=== PATIENT | female | born 1950 | race African-American/Black ===

== ENCOUNTER 2016-05-12 07:54 | Inpatient (IN) | payer MEDICARE ==
[~2016-05-12] VITALS: Ht 165.1 cm; Wt 58.1 kg
--- NOTE | ~2016-05-12 | EKG ---
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
--- NOTE | ~2016-05-12 | EEG ---
Formerly [facility] [place] [place] [address] ELECTROENCEPHALOGRAM Name: DEJUAN MARTINEZ Room #: 442-P ADM IN M.R.#: [id number] Admission: 05/12/16 Attend Phys: Aydin Farias MD Discharge: Date of : 46 Report #: [id number] THIS REPORT FOR: //name// CC: FAM unknown Aydin Farias DATE OF SERVICE: 05/13/2016 This patient is being evaluated for an episode of syncope. EEG was done to evaluate the possibility of seizure. EEG was done by placing the electrodes by standard 10-20 system of electrode placement. Both referential and sequential montages were used for recording. Background activity in this patient's EEG is about 11 Hz and 35-40 microvolts. This is a very well formed background activity. Most of the EEG was obtained when the patient was awake. However, this patient does become drowsy that is associated with bilateral slowing and a few vertex sharp waves and some sleep spindles which were symmetrical on both sides. Photic stimulation is unremarkable. Throughout the records, no active epileptiform activity was noticed. IMPRESSION: This patient's EEG is within normal limits. Thank you very much for this referral. By: 1714 1726 Nomi Birch MD /nt
--- NOTE | ~2016-05-12 | 2DMMODE ---
[facility] [email or web address] [address] 2 D/M-MODE ECHOCARDIOGRAM Name: JUANDEJUAN Room #: 442-P ADM IN .R.#: [id number] Admission: 05/12/16 Attend Phys: Brian Reeder Discharge: Date of : 46 Date of Service: 05/13/16 1708 Report #: [id number] THIS REPORT FOR: //name// APPROVED REPORT Study performed: 05/13/2016 14:06:08 EXAM: Comprehensive 2D, Doppler, and color-flow Echocardiogram Patient Location: Bedside Blood Pressure: 120/76 mmHg HR: 56 bpm Other Information Study Quality: Good Indications Hypertension/HDD Syncope 2D Dimensions RVDd: 34.50 mm LVEF(%): 69.65 (>50%) IVSd: 10.30 (7-11mm) LVOT Diam: 20.02 (18-24mm) LVDd: 39.84 mm PWd: 9.60 (7-11mm) Ascending Aorta: 29.02 mm LVDs: 24.41 (25-40mm) IVC: 13.00 mm Aortic Root: 30.64 mm Garnett's LVEF: 69.65 % Volumes Left Atrial Volume (Systole) Single Plane 4CH: 40.07 mL Single Plane 2CH: 36.99 mL LA ESV Index: 29.00 mL/m2 Aortic Valve AoV Peak Yung.: 1.82 m/s AO Peak Gr.: 13.26 mmHg LV Max P.47 mmHg LV Max: 1.17 m/s Mitral Valve MV PHT: 87.82 ms MV E Max Yung.: 1.02 m/s E/A Ratio: 0.9 MV A Yung.: 1.15 m/s MV Decel. Time: 302.82 ms [facility] [email or web address] [address] 2 D/M-MODE ECHOCARDIOGRAM Name: DEJUAN MARTINEZ Ck Room #: 442-P ADM IN M.R.#: [id number] Admission: 05/12/16 Attend Phys: Brian Reeder Discharge: Date of : 46 Date of Service: 05/13/16 1708 Report #: [id number] Pulmonary Valve PV Peak Yung.: 1.28 m/s PV Peak Gr.: 6.57 mmHg Tricuspid Valve TR Peak Yung.: 2.50 m/s RAP Estimate: 5.00 mmHg TR Peak Gr.: 25.03 mmHg Left Ventricle The left ventricle is normal size. There is normal LV segmental wall motion. There is normal left ventricular wall thickness. Left ventricular systolic function is normal. The left ventricular ejection fraction is within the normal range. LVEF is 60-65%. Left ventricular filling pattern is normal for age. Right Ventricle The right ventricle is normal size. The right ventricular systolic function is normal. Atria The left atrium size is normal. The right atrium size is normal. Aortic Valve The aortic valve is normal in structure. No aortic regurgitation is present. There is no aortic valvular stenosis. Mitral Valve The mitral valve is normal in structure. There is no mitral valve regurgitation noted. Tricuspid Valve The tricuspid valve is normal in structure. There is mild tricuspid regurgitation. The right atrial pressure is estimated at 5 mmHg. There is no pulmonary hypertension. The estimated PAP was 30 mmHg. Pulmonic Valve The pulmonary valve is normal in structure. There is no pulmonic valvular regurgitation. Great Vessels The aortic root is normal in size. Pericardium There is no pericardial effusion. [facility] [address] [place] [address] 2 D/M-MODE ECHOCARDIOGRAM Name: GUSTITUSDEJUAN Room #: 442-P [facility] IN .R.#: [id number] Admission: 05/12/16 Attend Phys: Brian Reeder Discharge: Date of : 46 Date of Service: 05/13/16 1708 Report #: [id number] <Conclusion> The left ventricle is normal size. There is normal left ventricular wall thickness. Left ventricular systolic function is normal. The right ventricle is normal size. The left atrium size is normal. The aortic valve is normal in structure. The mitral valve is normal in structure. There is mild tricuspid regurgitation. The right atrial pressure is estimated at 5 mmHg. There is no pulmonary hypertension. The estimated PAP was 30 mmHg. <ELECTRONICALLY SIGNED> By: Rafa Piña MD 05/13/168 07 07 Rafa Piña MD /INF
[~2016-05-12 07:54] MED LIST: ASPIRIN81 M2 PO; BENICAR HCT 401 EAC1 PO; CALTRATE 600 +1 EACH PO; CIPROFLOXACIN500 M1 PO; CLONIDINE0.1 PO; DYAZIDE 37.5-21 EACH PO; FISHOIL; K-DUR10 ME1 PO; LEVOXYL25 MCG PO; LEVOXYL50 MCG PO; NORCO 5-325 TA1 EACH PO; PREMARIN0.625 MG PO
[2016-05-12 07:56] VITALS: BP 140/96
[2016-05-12] MEDS ORDERED: ATORVASTATIN CA40 MG PO (08:17)
[2016-05-12] MEDS ORDERED: HYDROCHLOROTH12.5 M1 PO (08:17)
[2016-05-12 08:42] LABS: ABSOLUTE NEUTROPHILS 5.7 thou/uL (1.4-8.2); BASOPHILS 0.6 % (0.0-2.0); EOSINOPHILS 0.2 % (0.0-3.0); HEMATOCRIT 38.6 % (37.0-47.0); HEMOGLOBIN 13.6 gm/dL (12.0-15.0); LYMPHOCYTES 14.8 % (24.0-44.0); MCH 30.5 pg (26.0-34.0); MCHC 35.1 g/dL (28.0-37.0); MCV 86.7 fL (80.0-100.0); MONOCYTES 4.9 % (1.0-8.0); PLATELET COUNT 287 thou/uL (150-400); POLYS 79.5 % (36.0-66.0); RBC 4.45 mil/uL (4.20-5.00); RDW 14.3 % (10.5-14.5); WBC 7.1 thou/uL (4.0-11.0)
[2016-05-12 08:43] LABS: MANUAL DIFF NO
[2016-05-12 08:49] LABS: ANION GAP 6 mmol/L (7-16); BUN 18 mg/dL (7-18); CHLORIDE 102 mmol/L (98-107); CO2 29 mmol/L (21-32); CREATININE 1.1 mg/dL (0.6-1.3); GLUCOSE 133 mg/dL (70-99); POTASSIUM 3.8 mmol/L (3.5-5.1); SODIUM 137 mmol/L (136-145)
[2016-05-12 08:59] LABS: TROPONIN-I < 0.04 ng/mL (<0.04-0.07)
[2016-05-12 12:54] VITALS: BP 122/67
[2016-05-12 13:15] VITALS: BP 147/71
[2016-05-12 16:00] VITALS: BP 144/76
[2016-05-13 04:05] VITALS: BP 121/62
[2016-05-13 08:52] VITALS: BP 121/76
[2016-05-13 10:00] VITALS: BP 119/70; BP 120/76; BP 121/76
[2016-05-13 12:25] VITALS: BP 120/76
[2016-05-13 16:51] VITALS: BP 130/73
[2016-05-13 19:34] VITALS: BP 117/64
[2016-05-14 03:44] VITALS: BP 118/64
[2016-05-14 08:34] VITALS: BP 117/75
[2016-05-14 11:43] VITALS: BP 121/69
[2016-05-14 14:15] VITALS: BP 121/69
[2016-05-14 14:24] VITALS: BP 121/69
== END 2016-05-14 14:49 | disposition home or self-care (01) | DRG 312 ==
LOC: ER 07:54 → EROBS 11:51 → 4S 11:51
PROVIDERS: Emergency Medicine
PROC: 0CQ1XZZ Repair Lower Lip, External Approach (ICD-10-PCS; principal; 2016-05-12)
DX: R55 Syncope and collapse (principal); R56.9 Unspecified convulsions; S01.511A Laceration without foreign body of lip, initial encounter; E78.5 Hyperlipidemia, unspecified; I10 Essential (primary) hypertension; E03.9 Hypothyroidism, unspecified; G35 Multiple sclerosis; Z87.891 Personal history of nicotine dependence; Z79.899 Other long term (current) drug therapy; Z23 Encounter for immunization; Z90.710 Acquired absence of both cervix and uterus; X58.XXXA Exposure to other specified factors, initial encounter; Y93.89 Activity, other specified; Y92.89 Other specified places as the place of occurrence of the external cause; Y99.8 Other external cause status
CPT/HCPCS: 10100

== ENCOUNTER → 2016-05-30 | Outpatient (CLI) | payer MEDICARE, OTHER ==
[~2016-05-30] MED LIST changes: +ATORVASTATIN CA40 MG PO; +HYDROCHLOROTH12.5 M1 PO
== END ==
LOC: NUC 07:25
DX: R55 Syncope and collapse (principal)

== ENCOUNTER 2020-12-12 12:03 | Emergency (ER) | payer MEDICARE ==
[~2020-12-12] VITALS: Ht 165.1 cm; Wt 86.2 kg
[~2020-12-12 12:03] MED LIST changes: +COZAAR 50 MG TA50 M2 PO
[2020-12-12 12:20] VITALS: BP 145/78
[2020-12-12] MEDS ORDERED: AMLODIPINE BESY10 MG PO (12:28)
--- NOTE | 2020-12-13 08:27 | EKG ---
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- : 1950 Requested By: Erwin Parson Order Number: [id number] MD: Rosendo Flores Measurements Intervals Romeo Rate: 60 P: 61 OR: 160 QRS: -41 QRSD: 79 T: 63 QT: 417 QTc: 417 Interpretive Statements Sinus rhythm Left anterior fascicular block poor R wave progression Nonspecific T abnormalities Compared to ECG 08/01/2016 13:49:49 no significant change was found Electronically Signed On 12-13-2020 8:27:31 CDT by Rosendo Flores [email or web address] <ELECTRONICALLY SIGNED> By: Rosendo Flores MD, [facility] 12/13/20 08 12 12 Rosendo Flores MD, [facility] /EPI
== END 2020-12-12 12:51 | disposition home or self-care (01) ==
LOC: ER 12:03
DX: R20.2 Paresthesia of skin (principal); I10 Essential (primary) hypertension; E03.9 Hypothyroidism, unspecified; G35 Multiple sclerosis; Z90.710 Acquired absence of both cervix and uterus; Z79.899 Other long term (current) drug therapy; Z79.891 Long term (current) use of opiate analgesic